=== PATIENT | male | born 1965 | race Caucasian/White ===

== ENCOUNTER 2020-04-06 13:02 | Inpatient (IN) | payer MEDICAID ==
[~2020-04-06] VITALS: Ht 162.6 cm; Wt 85.3 kg
[~2020-04-06 13:02] MED LIST: CAPT12.53 PO
[2020-04-06] MEDS ORDERED: ASPIRIN 81MG TABLET PO ONE (13:45)
[2020-04-06] MEDS ORDERED: NITROGLYCERIN 0.4MG TABLET SL SL PRN (13:45)
[2020-04-06 14:23] LABS: EOSINOPHILS % 0.1 % (0.0-5.0); HEMATOCRIT. 39.2 % (42.0-52.0); HEMOGLOBIN. 12.6 g/dL (14.0-18.0); LYMPHOCYTES % 15.6 % (20.0-50.0); MEAN CORPUSCULAR HEMOGLOBIN 28.5 pg (28.0-32.0); MEAN CORPUSCULAR VOLUME 88.6 fL (80.0-94.0); MEAN PLATELET VOLUME 8.4 fl (7.4-10.4); MONOCYTES % 11.7 % (2.0-8.0); NEUTROPHILS % 71.6 % (40.0-76.0); PLATELET 178 x1000/uL (130-400); RED BLOOD CELL COUNT 4.43 mill/uL (4.7-6.1); RED CELL DISTRIBUTION WIDTH 16.1 % (11.6-14.6)
[2020-04-06 14:32] LABS: CHLORIDE 99 mEq/L (98-107)
[2020-04-06 14:35] LABS: ETHANOL BLOOD < 10 mg/dL
[2020-04-06 14:57] LABS: BG BASE EXCESS -1.3 mmol/L (-2.0-2.0); BG CARBOXYHEMOGLOBIN 1.4 % (0.5-1.5); BG DEOXYHEMOGLOBIN 3.8 % (0.0-5.0); BG FRACTION INSPIRED OXYGEN 21; BG HCO3 ACT 20.1 mmol/L (22.0-26.0); BG METHEMOGLOBIN 0.2 % (0.0-1.5); BG OXYGEN SATURATION 96.1 % (92.0-98.5); BG OXYHEMOGLOBIN 94.6 % (94.0-97.0); BG PCO2 25.3 mmHg (35.0-45.0); BG PH 7.518 (7.350-7.450); BG PO2 83.6 mmHg (75.0-100.0); BG SAMPLE SITE RIGHT RADIAL; BG TOTAL HEMOGLOBIN 13.1 g/dL (12.0-18.0); BG VENT MODE ROOM AIR
[2020-04-06 14:57] LABS: INR 1.8; PROTHROMBIN TIME 18.3 sec (9.6-11.0)
[2020-04-06] MEDS ORDERED: FUROSEMIDE 40MG/4ML VIAL IVP ONE (17:30)
[2020-04-06] MEDS ORDERED: ACETAMINOPHEN 325MG TABLET PO PRN (19:45)
[2020-04-06] MEDS ORDERED: ONDANSETRON HCL 4MG/2ML INJ IV PRN (19:45)
[2020-04-06 19:58] LABS: LDL CHOLESTEROL 28 mg/dL (5-100)
[2020-04-06 20:00] LABS: HDL CHOLESTEROL 15 mg/dL (40-59)
[2020-04-06] MEDS ORDERED: CEFTRIAXONE 1 G PREMIX 50 ML IV SCH (20:00)
[2020-04-06] MEDS: FUROSEMIDE 40MG/4ML VIAL IVP SCH (21:09)
[2020-04-06] MEDS: AZITHROMYCIN 500 MG TABLET PO SCH (21:09)
[2020-04-06 22:00] VITALS: BP_SYST 113; BP_SYST 118; BP_DIAS 95
[2020-04-06] MEDS: ENOXAPARIN 40MG/0.4ML SYR SUBCUT SCH (22:47)
[2020-04-06] MEDS ORDERED: FURO40TA5 PO (23:17)
[2020-04-06] MEDS ORDERED: CARV3.1242 PO (23:17)
[2020-04-06] MEDS ORDERED: OLAN20TA34 PO (23:17)
[2020-04-06] MEDS ORDERED: TRAZ150T78 PO (23:17)
[2020-04-06] MEDS ORDERED: LISI-186 PO (23:17)
[2020-04-06] MEDS ORDERED: ASPI-1497 PO (23:17)
[2020-04-06] MEDS ORDERED: OMEP20CA14 MT (23:26)
[2020-04-06] MEDS ORDERED: ATOR40TA70 MT (23:26)
[2020-04-06] MEDS ORDERED: OMEP20TA2 MT (23:26)
[2020-04-07] VITALS: BP 114/84
[2020-04-07 04:00] VITALS: BP 95/76
[2020-04-07] MEDS: FUROSEMIDE 40MG/4ML VIAL IVP SCH ×2 (06:20→17:31)
[2020-04-07 08:04] VITALS: BP 98/76
[2020-04-07] MEDS: AZITHROMYCIN 500 MG TABLET PO SCH (08:52)
[2020-04-07 12:03] VITALS: BP 107/84
[2020-04-07] MEDS: HYDROCODONE/ACETAMINOPHEN 5/325MG TABLET PO PRN ×2 (12:56→20:38)
[2020-04-07 15:57] VITALS: BP 112/90
[2020-04-07] MEDS: IPRATROPIUM/ALBUTEROL 0.5-3(2.5)MG/3ML NEB HHN PRN (19:53)
[2020-04-07 20:00] VITALS: BP 112/85
[2020-04-07] MEDS: ENOXAPARIN 40MG/0.4ML SYR SUBCUT SCH (20:19)
[2020-04-07] MEDS: CEFTRIAXONE 1,000 MG in DEXTROSE 5% WATER 50 ML IV SCH (20:26)
[2020-04-07] MEDS ORDERED: CEFTRIAXONE 1 G PREMIX 50 ML IV SCH (21:00)
[2020-04-08] VITALS: BP 107/79
[2020-04-08] MEDS: IPRATROPIUM/ALBUTEROL 0.5-3(2.5)MG/3ML NEB HHN PRN ×3 (01:22→14:39)
[2020-04-08 04:00] VITALS: BP 105/85
[2020-04-08] MEDS: LEVOTHYROXINE SODIUM 50MCG TABLET PO SCH (06:14)
[2020-04-08] MEDS: FUROSEMIDE 40MG/4ML VIAL IVP SCH (06:15)
[2020-04-08 07:40] LABS: EOSINOPHILS % 1.6 % (0.0-5.0); HEMATOCRIT. 37.3 % (42.0-52.0); LYMPHOCYTES % 17.3 % (20.0-50.0); MEAN CORPUSCULAR HEMOGLOBIN 28.2 pg (28.0-32.0); MEAN CORPUSCULAR VOLUME 87.6 fL (80.0-94.0); MEAN PLATELET VOLUME 8.2 fl (7.4-10.4); MONOCYTES % 10.7 % (2.0-8.0); NEUTROPHILS % 69.4 % (40.0-76.0); PLATELET 144 x1000/uL (130-400); RED BLOOD CELL COUNT 4.26 mill/uL (4.7-6.1); RED CELL DISTRIBUTION WIDTH 15.8 % (11.6-14.6)
[2020-04-08 07:51] LABS: CHLORIDE 98 mEq/L (98-107)
[2020-04-08 08:00] VITALS: BP 110/96
[2020-04-08] MEDS: AZITHROMYCIN 500 MG TABLET PO SCH (09:24)
[2020-04-08] MEDS ORDERED: POTASSIUM CHLORIDE INJ 40 MEQ in DEXT 5% WATER 250 ML IV SCH (10:00)
[2020-04-08 12:00] VITALS: BP 113/83
[2020-04-08 16:00] VITALS: BP 112/70
[2020-04-08 20:00] VITALS: BP 101/75
[2020-04-08] MEDS: METOPROLOL TARTRATE 25MG TABLET PO SCH (21:00)
[2020-04-08] MEDS: CEFTRIAXONE 1,000 MG in DEXTROSE 5% WATER 50 ML IV SCH (21:14)
[2020-04-08] MEDS: HYDROCODONE/ACETAMINOPHEN 5/325MG TABLET PO PRN (21:15)
[2020-04-08] MEDS: ENOXAPARIN 40MG/0.4ML SYR SUBCUT SCH (21:16)
[2020-04-08] MEDS: ZOLPIDEM TARTRATE 5MG TABLET PO PRN (22:20)
[2020-04-08 22:56] LABS: *AMPHETAMINES SCREEN URINE NEGATIVE (NEGATIVE)
[2020-04-08 22:57] LABS: *BARBITURATES SCREEN URINE NEGATIVE (NEGATIVE); *BENZODIAZEPINES SCREEN URINE NEGATIVE (NEGATIVE); *COCAINE SCREEN URINE NEGATIVE (NEGATIVE); CANNABINOID URINE SCREEN NEGATIVE (NEGATIVE); METHADONE URINE SCREEN NEGATIVE (NEGATIVE); OPIATES URINE SCREEN PRESUMTIVE POSITIVE (NEGATIVE); PHENCYCLIDINE URINE SCREEN NEGATIVE (NEGATIVE)
[2020-04-09] VITALS: BP 108/60
[2020-04-09 04:00] VITALS: BP 117/89
[2020-04-09] MEDS: LEVOTHYROXINE SODIUM 50MCG TABLET PO SCH (06:25)
[2020-04-09 08:00] VITALS: BP 112/91
[2020-04-09] MEDS: FUROSEMIDE 40MG TABLET PO SCH (08:12)
[2020-04-09] MEDS: AZITHROMYCIN 500 MG TABLET PO SCH (08:12)
[2020-04-09] MEDS: POTASSIUM CHLORIDE 10MEQ TABLET SR PO SCH (08:12)
[2020-04-09] MEDS: METOPROLOL TARTRATE 25MG TABLET PO SCH ×2 (08:13→20:29)
[2020-04-09] MEDS: IPRATROPIUM/ALBUTEROL 0.5-3(2.5)MG/3ML NEB HHN PRN (10:05)
[2020-04-09 12:00] VITALS: BP 113/86
[2020-04-09 12:15] LABS: EOSINOPHILS % 1.5 % (0.0-5.0); HEMATOCRIT. 39.9 % (42.0-52.0); HEMOGLOBIN. 12.9 g/dL (14.0-18.0); LYMPHOCYTES % 18.8 % (20.0-50.0); MEAN CORPUSCULAR HEMOGLOBIN 28.2 pg (28.0-32.0); MEAN CORPUSCULAR VOLUME 87.5 fL (80.0-94.0); MEAN PLATELET VOLUME 8.3 fl (7.4-10.4); NEUTROPHILS % 67.7 % (40.0-76.0); PLATELET 156 x1000/uL (130-400); RED BLOOD CELL COUNT 4.56 mill/uL (4.7-6.1)
[2020-04-09 12:44] LABS: CHLORIDE 96 mEq/L (98-107)
[2020-04-09 16:00] VITALS: BP 110/89
[2020-04-09 20:00] VITALS: BP 111/90
[2020-04-09] MEDS: HYDROCODONE/ACETAMINOPHEN 5/325MG TABLET PO PRN (20:15)
[2020-04-09] MEDS: ENOXAPARIN 40MG/0.4ML SYR SUBCUT SCH (20:28)
[2020-04-09] MEDS: ZOLPIDEM TARTRATE 5MG TABLET PO PRN (20:28)
[2020-04-09] MEDS: CEFTRIAXONE 1,000 MG in DEXTROSE 5% WATER 50 ML IV SCH (20:28)
[2020-04-09] MEDS: LORAZEPAM 2MG/ML CPJ IV PRN (21:25)
[2020-04-10] VITALS: BP 108/80
[2020-04-10 04:00] VITALS: BP 117/74
[2020-04-10] MEDS: LEVOTHYROXINE SODIUM 50MCG TABLET PO SCH (06:38)
[2020-04-10 07:15] LABS: BASOPHILS % 0.9 % (0.0-2.0); EOSINOPHILS % 0.2 % (0.0-5.0); HEMATOCRIT. 40.5 % (42.0-52.0); MEAN CORPUSCULAR HEMOGLOBIN 28.2 pg (28.0-32.0); MEAN PLATELET VOLUME 8.5 fl (7.4-10.4); MONOCYTES % 14.5 % (2.0-8.0); NEUTROPHILS % 67.4 % (40.0-76.0); PLATELET 161 x1000/uL (130-400); RED CELL DISTRIBUTION WIDTH 16.2 % (11.6-14.6)
[2020-04-10 08:00] VITALS: BP 110/82
[2020-04-10] MEDS: AZITHROMYCIN 500 MG TABLET PO SCH (09:55)
[2020-04-10] MEDS: POTASSIUM CHLORIDE 10MEQ TABLET SR PO SCH (09:55)
[2020-04-10] MEDS: METOPROLOL TARTRATE 25MG TABLET PO SCH (09:55)
[2020-04-10] MEDS: FUROSEMIDE 40MG TABLET PO SCH (09:55)
[2020-04-10 12:00] VITALS: BP 112/77
[2020-04-10] MEDS: LORAZEPAM 2MG/ML CPJ IV PRN (14:08)
[2020-04-10 16:00] VITALS: BP 100/72
[2020-04-10] MEDS: CHLORDIAZEPOXIDE 25MG CAPSULE PO SCH ×2 (17:43→21:17)
[2020-04-10 20:00] VITALS: BP 111/88
[2020-04-10] MEDS: CEFTRIAXONE 1,000 MG in DEXTROSE 5% WATER 50 ML IV SCH (21:16)
[2020-04-10] MEDS: BLOOD SUGAR DIAGNOSTIC STRIP TEST SCH (21:16)
[2020-04-10] MEDS: ENOXAPARIN 40MG/0.4ML SYR SUBCUT SCH (21:17)
[2020-04-11] VITALS: BP 126/78
[2020-04-11] MEDS: LORAZEPAM 2MG/ML CPJ IV PRN (01:25)
[2020-04-11 04:00] VITALS: BP 97/72
[2020-04-11] MEDS: BLOOD SUGAR DIAGNOSTIC STRIP TEST SCH ×4 (05:42→21:12)
[2020-04-11] MEDS: CHLORDIAZEPOXIDE 25MG CAPSULE PO SCH ×3 (06:33→21:13)
[2020-04-11] MEDS: LEVOTHYROXINE SODIUM 50MCG TABLET PO SCH (06:33)
[2020-04-11 08:00] VITALS: BP 117/83
[2020-04-11] MEDS: POTASSIUM CHLORIDE 10MEQ TABLET SR PO SCH (10:20)
[2020-04-11 12:00] VITALS: BP 103/80
[2020-04-11 16:00] VITALS: BP 110/80
[2020-04-11] MEDS ORDERED: CARV3.1242 MT (17:30)
[2020-04-11] MEDS ORDERED: LEVO50TA8 PO (17:30)
[2020-04-11] MEDS ORDERED: FLUT1DIS3 INH (17:30)
[2020-04-11] MEDS ORDERED: FURO-151 MT (17:30)
[2020-04-11] MEDS ORDERED: ALBU18HF2 IH (17:30)
[2020-04-11] MEDS ORDERED: LOSA25TA26 MT (17:30)
[2020-04-11 20:00] VITALS: BP 109/74
[2020-04-11] MEDS: ENOXAPARIN 40MG/0.4ML SYR SUBCUT SCH (21:13)
[2020-04-11] MEDS: CEFTRIAXONE 1,000 MG in DEXTROSE 5% WATER 50 ML IV SCH (21:13)
[2020-04-11] MEDS: ZOLPIDEM TARTRATE 5MG TABLET PO PRN (23:18)
[2020-04-12] VITALS: BP 118/65
[2020-04-12 04:00] VITALS: BP 129/83
[2020-04-12] MEDS: LEVOTHYROXINE SODIUM 50MCG TABLET PO SCH (06:11)
[2020-04-12] MEDS: BLOOD SUGAR DIAGNOSTIC STRIP TEST SCH ×3 (06:11→20:49)
[2020-04-12] MEDS: CHLORDIAZEPOXIDE 25MG CAPSULE PO SCH ×3 (06:11→20:50)
[2020-04-12 08:00] VITALS: BP 173/143
[2020-04-12] MEDS: POTASSIUM CHLORIDE 10MEQ TABLET SR PO SCH (09:56)
[2020-04-12 20:00] VITALS: BP 107/75
[2020-04-12] MEDS: ENOXAPARIN 40MG/0.4ML SYR SUBCUT SCH (20:50)
[2020-04-12] MEDS: CEFTRIAXONE 1,000 MG in DEXTROSE 5% WATER 50 ML IV SCH (20:50)
[2020-04-12] MEDS: ZOLPIDEM TARTRATE 5MG TABLET PO PRN (22:10)
[2020-04-13] VITALS: BP 105/82
[2020-04-13 03:55] VITALS: BP 108/74
[2020-04-13] MEDS: CHLORDIAZEPOXIDE 25MG CAPSULE PO SCH ×3 (06:43→20:30)
[2020-04-13] MEDS: LEVOTHYROXINE SODIUM 50MCG TABLET PO SCH (06:43)
[2020-04-13] MEDS: BLOOD SUGAR DIAGNOSTIC STRIP TEST SCH ×4 (06:43→20:09)
[2020-04-13 08:00] VITALS: BP 121/80
[2020-04-13] MEDS: POTASSIUM CHLORIDE 10MEQ TABLET SR PO SCH (08:49)
[2020-04-13 12:00] VITALS: BP 122/80
[2020-04-13] MEDS: FUROSEMIDE 40MG/4ML VIAL IVP SCH (13:35)
[2020-04-13] MEDS ORDERED: LORAZEPAM 2MG/ML CPJ IV PRN (14:15)
[2020-04-13 16:00] VITALS: BP 111/78
[2020-04-13 16:28] LABS: CHLORIDE 100 mEq/L (98-107)
[2020-04-13 16:33] LABS: HEMATOCRIT. 41.5 % (42.0-52.0); HEMOGLOBIN. 13.3 g/dL (14.0-18.0); MEAN CORPUSCULAR VOLUME 87.6 fL (80.0-94.0); MEAN PLATELET VOLUME 9.1 fl (7.4-10.4); PLATELET 140 x1000/uL (130-400); RED BLOOD CELL COUNT 4.74 mill/uL (4.7-6.1); RED CELL DISTRIBUTION WIDTH 16.3 % (11.6-14.6)
[2020-04-13 19:47] LABS: NUCLEATED RED BLOOD CELLS 1 /100 WBC; PLATELET ESTIMATE NORMAL
[2020-04-13 20:00] VITALS: BP 107/84
[2020-04-13] MEDS: ENOXAPARIN 40MG/0.4ML SYR SUBCUT SCH (20:31)
[2020-04-14] VITALS: BP 133/80
[2020-04-14 04:00] VITALS: BP 140/88
[2020-04-14] MEDS: LEVOTHYROXINE SODIUM 50MCG TABLET PO SCH (05:57)
[2020-04-14] MEDS: CHLORDIAZEPOXIDE 25MG CAPSULE PO SCH ×3 (05:57→21:01)
[2020-04-14] MEDS: BLOOD SUGAR DIAGNOSTIC STRIP TEST SCH ×4 (06:02→20:57)
[2020-04-14 08:00] VITALS: BP 117/60
[2020-04-14] MEDS: FUROSEMIDE 40MG/4ML VIAL IVP SCH (08:38)
[2020-04-14] MEDS: POTASSIUM CHLORIDE 10MEQ TABLET SR PO SCH (08:38)
[2020-04-14 12:00] VITALS: BP 98/68
[2020-04-14 16:00] VITALS: BP 115/68
[2020-04-14 20:00] VITALS: BP 110/75
[2020-04-14] MEDS: ENOXAPARIN 40MG/0.4ML SYR SUBCUT SCH (20:49)
[2020-04-14] MEDS ORDERED: DIPHENHYDRAMINE 50MG CAPSULE PO PRN (21:15)
[2020-04-15] VITALS: BP 117/94
[2020-04-15 04:00] VITALS: BP 115/92
[2020-04-15] MEDS: BLOOD SUGAR DIAGNOSTIC STRIP TEST SCH ×4 (05:42→20:28)
[2020-04-15] MEDS: LEVOTHYROXINE SODIUM 50MCG TABLET PO SCH (06:03)
[2020-04-15] MEDS: CHLORDIAZEPOXIDE 25MG CAPSULE PO SCH (06:03)
[2020-04-15 08:00] VITALS: BP 123/95
[2020-04-15 08:18] LABS: CHLORIDE 99 mEq/L (98-107)
[2020-04-15] MEDS: POTASSIUM CHLORIDE 10MEQ TABLET SR PO SCH (09:00)
[2020-04-15] MEDS: FUROSEMIDE 40MG/4ML VIAL IVP SCH (09:15)
[2020-04-15 12:00] VITALS: BP 102/82
[2020-04-15] MEDS: DEXT 5%/0.45% NACL 1000ML 1,000 ML IV SCH (15:07)
[2020-04-15 16:00] VITALS: BP 113/68
[2020-04-15 17:25] LABS: BG BASE EXCESS -0.9 mmol/L (-2.0-2.0); BG CARBOXYHEMOGLOBIN 1.1 % (0.5-1.5); BG DEOXYHEMOGLOBIN 2.8 % (0.0-5.0); BG FRACTION INSPIRED OXYGEN 28; BG HCO3 ACT 21.3 mmol/L (22.0-26.0); BG METHEMOGLOBIN 0.4 % (0.0-1.5); BG OXYGEN SATURATION 97.2 % (92.0-98.5); BG OXYHEMOGLOBIN 95.7 % (94.0-97.0); BG PCO2 28.6 mmHg (35.0-45.0); BG PO2 91.2 mmHg (75.0-100.0); BG SAMPLE SITE RIGHT RADIAL; BG VENT MODE NASAL CANNULA
[2020-04-15 20:00] VITALS: BP 88/56
[2020-04-15] MEDS: ENOXAPARIN 40MG/0.4ML SYR SUBCUT SCH (20:28)
[2020-04-16] VITALS: BP 106/81
[2020-04-16 04:00] VITALS: BP 124/71
[2020-04-16] MEDS: LEVOTHYROXINE SODIUM 50MCG TABLET PO SCH (06:40)
[2020-04-16 06:45] LABS: CHLORIDE 100 mEq/L (98-107)
[2020-04-16 08:00] VITALS: BP 118/77
[2020-04-16] MEDS: BLOOD SUGAR DIAGNOSTIC STRIP TEST SCH ×4 (08:00→20:46)
[2020-04-16] MEDS: THIAMINE HCL 100MG TABLET PO SCH (08:26)
[2020-04-16] MEDS: FUROSEMIDE 40MG/4ML VIAL IVP SCH (08:26)
[2020-04-16] MEDS: RISPERIDONE 0.5MG TABLET PO SCH (08:26)
[2020-04-16] MEDS: FOLIC ACID 1MG TABLET PO SCH (08:26)
[2020-04-16 12:00] VITALS: BP 109/79
[2020-04-16] MEDS: DEXT 5%/0.45% NACL 1000ML 1,000 ML IV SCH (13:00)
[2020-04-16] MEDS: POTASSIUM CHLORIDE 20MEQ TABLET SR PO SCH (13:04)
[2020-04-16 15:54] VITALS: BP 91/69
[2020-04-16 20:00] VITALS: BP 108/89
[2020-04-16] MEDS: ENOXAPARIN 40MG/0.4ML SYR SUBCUT SCH (20:48)
[2020-04-17] VITALS: BP 106/60
[2020-04-17 04:00] VITALS: BP 109/76
[2020-04-17] MEDS: LEVOTHYROXINE SODIUM 50MCG TABLET PO SCH (06:09)
[2020-04-17] MEDS: BLOOD SUGAR DIAGNOSTIC STRIP TEST SCH ×4 (06:38→21:31)
[2020-04-17 08:00] VITALS: BP 115/79
[2020-04-17] MEDS: FOLIC ACID 1MG TABLET PO SCH (08:36)
[2020-04-17] MEDS: FUROSEMIDE 40MG/4ML VIAL IVP SCH (08:36)
[2020-04-17] MEDS: THIAMINE HCL 100MG TABLET PO SCH (08:36)
[2020-04-17] MEDS: POTASSIUM CHLORIDE 20MEQ TABLET SR PO SCH (08:37)
[2020-04-17] MEDS: RISPERIDONE 0.5MG TABLET PO SCH (08:37)
[2020-04-17 12:00] VITALS: BP 100/65
[2020-04-17] MEDS: DEXT 5%/0.45% NACL 1000ML 1,000 ML IV SCH (12:58)
[2020-04-17 16:00] VITALS: BP 110/74
[2020-04-17 20:00] VITALS: BP 108/85
[2020-04-17] MEDS: ENOXAPARIN 40MG/0.4ML SYR SUBCUT SCH (21:31)
[2020-04-18] VITALS: BP 112/66
[2020-04-18 04:00] VITALS: BP 109/82
[2020-04-18] MEDS: BLOOD SUGAR DIAGNOSTIC STRIP TEST SCH ×2 (06:11→12:10)
[2020-04-18] MEDS: LEVOTHYROXINE SODIUM 50MCG TABLET PO SCH (06:11)
[2020-04-18 08:00] VITALS: BP 99/69
[2020-04-18] MEDS: POTASSIUM CHLORIDE 20MEQ TABLET SR PO SCH (09:02)
[2020-04-18] MEDS: FUROSEMIDE 40MG/4ML VIAL IVP SCH (09:02)
[2020-04-18] MEDS: RISPERIDONE 0.5MG TABLET PO SCH (09:03)
[2020-04-18] MEDS: THIAMINE HCL 100MG TABLET PO SCH (09:03)
[2020-04-18] MEDS: FOLIC ACID 1MG TABLET PO SCH (09:03)
[2020-04-18 11:57] VITALS: BP 120/99
[2020-04-18 16:00] VITALS: BP 105/72
[2020-04-18 20:00] VITALS: BP 127/94
[2020-04-18] MEDS: ENOXAPARIN 40MG/0.4ML SYR SUBCUT SCH (20:55)
[2020-04-19] VITALS (7 sets, daily range): BP systolic 101–116; BP diastolic 73–90
[2020-04-19] MEDS: LEVOTHYROXINE SODIUM 50MCG TABLET PO SCH (06:33)
[2020-04-19] MEDS: RISPERIDONE 0.5MG TABLET PO SCH (08:50)
[2020-04-19] MEDS: FOLIC ACID 1MG TABLET PO SCH (08:50)
[2020-04-19] MEDS: THIAMINE HCL 100MG TABLET PO SCH (08:50)
[2020-04-19] MEDS: POTASSIUM CHLORIDE 20MEQ TABLET SR PO SCH (08:50)
[2020-04-19] MEDS ORDERED: FUROSEMIDE 40MG TABLET PO SCH ×2 (09:00)
== END 2020-04-19 21:05 | DRG 139 ==
LOC: ER 13:02 → 8WST 17:17 → EDBEDREQ 17:23 → EDBEDREQTM 17:23 → ENRESERV 20:54 → 8WST 04-10 11:47
PROVIDERS: ADMIT Internal Medicine; ATTEND Internal Medicine
DX: J18.9 Pneumonia, unspecified organism (principal); I13.0 Hypertensive heart and chronic kidney disease with heart failure and stage 1 through stage 4 chronic kidney disease, or unspecified chronic kidney disease; D64.9 Anemia, unspecified; I50.41 Acute combined systolic (congestive) and diastolic (congestive) heart failure; D68.9 Coagulation defect, unspecified; E03.9 Hypothyroidism, unspecified; E87.1 Hypo-osmolality and hyponatremia; N18.2 Chronic kidney disease, stage 2 (mild); I27.20 Pulmonary hypertension, unspecified; J44.0 Chronic obstructive pulmonary disease with (acute) lower respiratory infection; I42.9 Cardiomyopathy, unspecified; G93.40 Encephalopathy, unspecified; Z20.828 Contact with and (suspected) exposure to other viral communicable diseases; I08.0 Rheumatic disorders of both mitral and aortic valves; E16.2 Hypoglycemia, unspecified; F19.10 Other psychoactive substance abuse, uncomplicated; F41.9 Anxiety disorder, unspecified; F10.239 Alcohol dependence with withdrawal, unspecified; F17.210 Nicotine dependence, cigarettes, uncomplicated; I25.10 Atherosclerotic heart disease of native coronary artery without angina pectoris; Z95.1 Presence of aortocoronary bypass graft; Z95.2 Presence of prosthetic heart valve; Z79.82 Long term (current) use of aspirin; Z79.899 Other long term (current) drug therapy; Z71.6 Tobacco abuse counseling; Z71.41 Alcohol abuse counseling and surveillance of alcoholic; N17.0 Acute kidney failure with tubular necrosis
CPT/HCPCS: 36415; 36600; 71045; 80048; 80053; 80061; 80305; 80320; 82375; 82805; 82962; 83880; 84439; 84443; 84484; 85025; 93005; 93306; 94618; 94640; 97116; 97162; 97166; 97530; 97535; 99285; J0696; J1650; J1940; J2060; J3480; J7060; Q0163; G0480; U0003-CS